=== PATIENT | male | born 1970 | race Caucasian/White ===

== ENCOUNTER 2016-05-25 10:00 | Outpatient (CLI) | payer MEDICAID | END 2016-05-25 10:01 | disposition home or self-care (01) | DX: C73 Malignant neoplasm of thyroid gland (principal) ==

== ENCOUNTER 2016-08-03 08:49 | Outpatient (CLI) | payer MEDICAID | END 2016-08-03 08:50 | disposition home or self-care (01) | DX: M50.31 Other cervical disc degeneration, high cervical region (principal); M47.892 Other spondylosis, cervical region; M47.893 Other spondylosis, cervicothoracic region ==

== ENCOUNTER 2016-12-10 09:25 | Outpatient (CLI) | payer MEDICAID | END 2016-12-10 09:26 | disposition home or self-care (01) | LOC: LAB.N 09:25 | PROVIDERS: ATTEND Nurse Practitioner Gerontology | DX: R31.0 Gross hematuria (principal) | CPT/HCPCS: 36415; 84153 ==

== ENCOUNTER 2017-01-17 10:50 | Outpatient (CLI) | payer MEDICAID ==
[2017-01-17 19:29] LABS: CREATININE 1.1 mg/dL (0.6-1.2)
[2017-01-17 19:39] LABS: PSA TOTAL 7.99 ng/mL (0.000-2.000)
[2017-01-18 11:54] LABS: PSA FREE 1.3 ng/mL (0.16-2.81)
== END 2017-01-17 10:51 | disposition home or self-care (01) ==
LOC: LAB.N 10:50
PROVIDERS: ATTEND Urology
DX: R31.0 Gross hematuria (principal); R97.20 Elevated prostate specific antigen [PSA]; R39.15 Urgency of urination; R35.0 Frequency of micturition
CPT/HCPCS: 36415; 82565; 84153; 84154; 84520

== ENCOUNTER 2017-01-24 05:19 | Emergency (ER) | payer MEDICAID ==
[2017-01-24] MEDS ORDERED: SODIUM CHLORIDE 0.9% 1,000 ML IV ONE (05:38)
[2017-01-24] MEDS ORDERED: MORPHINE 10 MG/ML VIAL IVP STA (05:38)
[2017-01-24 05:47] LABS: BASOPHILS # (AUTO) 0.1 10^3/uL (0.0-0.1); BASOPHILS % (AUTO) 0.7 %; EOSINOPHILS # (AUTO) 0.3 10^3/uL (0.0-0.7); EOSINOPHILS % (AUTO) 2.5 %; HCT - HEMATOCRIT 45.3 % (42.0-52.0); HGB - HEMOGLOBIN 15.9 g/dL (14.0-18.0); LYMPHOCYTES # (AUTO) 2.2 10^3/uL (1.5-3.5); LYMPHOCYTES % (AUTO) 19.9 %; MEAN CORPUSCULAR HEMOGLOBIN 31.5 pg (27.0-31.0); MEAN CORPUSCULAR VOLUME 89.8 fL (80.0-94.0); MEAN PLATELET VOLUME 8.2 fL (7.4-11.4); MONOCYTES # (AUTO) 0.6 10^3/uL (0.0-1.0); MONOCYTES % (AUTO) 5.8 %; NEUTROPHILS # (AUTO) 7.8 10^3/uL (1.5-6.6); NEUTROPHILS % (AUTO) 71.1 %; RED BLOOD COUNT 5.04 10^6/uL (4.70-6.10); RED CELL DISTRIBUTION WIDTH 13.8 % (12.0-15.0); UNCORRECTED WHITE BLOOD COUNT 10.9 x10^3/uL; WHITE BLOOD COUNT 10.9 x10^3/uL (4.8-10.8)
[2017-01-24] MEDS ORDERED: MORPHINE 2 MG/ML SYRINGE ONE (05:53)
[2017-01-24 06:02] LABS: ALBUMIN/GLOBULIN RATIO 1.1 (1.0-2.2); BILIRUBIN,DIRECT 0.1 mg/dL (0.1-0.5); BILIRUBIN,TOTAL 0.4 mg/dL (0.2-1.0); CALCIUM 8.4 mg/dL (8.5-10.3); TOTAL PROTEIN 7.9 g/dL (6.7-8.2)
--- NOTE | 2017-01-24 06:02 | ED Physician Documentation ---
PD HPI ABD PAIN - Stated complaint Stated Complaint: ABDOMINAL PAIN - Chief complaint Chief Complaint: Abd Pain - History obtained from History obtained from: Patient, Family - History of Present Illness Timing - onset: Today Timing - details: Gradual onset, Still present Quality: Aching, Sharp Location: RUQ Worsened by: Position, Palpation Associated symptoms: Nausea. No: Fever, Vomiting, Hematemesis, Diarrhea Similar symptoms before: Has not had sx before Recently seen: Not recently seen - Additional information Additional information: Patient is a 46 year old male with no significant past medical history who is presenting to the emergency department for abdominal pain. patient states that it started this morning and is severe in nature. Patient states that it his in his right upper quadrant. patient reports eating a hamburger and ice cream yesterday. Review of Systems Constitutional: reports: Chills. denies: Fever Eyes: denies: Loss of vision Ears: denies: Ear pain, Drainage/discharge Nose: denies: Rhinorrhea / runny nose, Congestion Throat: denies: Dental pain / toothache, Sore throat Cardiac: denies: Chest pain / pressure Respiratory: denies: Dyspnea, Cough GI: reports: Abdominal Pain. denies: Nausea, Vomiting : denies: Dysuria, Frequency Musculoskeletal: denies: Neck pain, Back pain Neurologic: denies: Generalized weakness, Focal weakness Immunocompromised: denies: Immunocompromised PD PAST MEDICAL HISTORY - Past Medical History Cardiovascular: Hypertension Respiratory: None Neuro: None Endocrine/Autoimmune: None HEENT: Other Psych: None Musculoskeletal: None Derm: Psoriasis - Past Surgical History Past Surgical History: No - Present Medications Home Medications: Ambulatory Orders Medication Instructions Recorded Confirmed Atenolol/Chlorthalidone 1 tab PO DAILY 01/24/17 01/24/17 [Atenolol-Chlorthalidone 100-25] Calcitriol [Rocaltrol] 1 tab PO DAILY 01/24/17 01/24/17 Clobetasol Propionate 1 applic .ROUTE DAILY 01/24/17 01/24/17 Indomethacin 1 tab PO PRN PRN 01/24/17 01/24/17 Levothyroxine [Synthroid] 175 mg PO DAILY 01/24/17 01/24/17 Ondansetron Odt [Zofran] 4 mg TL Q6H PRN #14 tablet 01/24/17 Oxycodone HCl/Acetaminophen 1 - 2 each PO Q6H PRN #14 tablet 01/24/17 [Percocet 5-325 mg Tablet] Tamsulosin [Flomax] 1 tab PO DAILY 01/24/17 01/24/17 - Allergies Allergies/Adverse Reactions: Allergies Allergy/AdvReac Type Severity Reaction Status Date / Time No Known Drug Allergies Allergy Verified 01/24/17 05:28 - Social History Does the pt smoke?: No Smoking Status: Never smoker Does the pt drink ETOH?: No Does the pt have substance abuse?: No - Immunizations Immunizations are current?: Yes PD ED PE NORMAL - Vitals Vital signs reviewed: Yes - General General: Alert and oriented X 3, No acute distress - HEENT HEENT: Atraumatic, PERRL - Neck Neck: Supple, no meningeal sign - Cardiac Cardiac: RRR, No murmur - Respiratory Respiratory: No respiratory distress - Abdomen Abdomen: Soft - Derm Derm: Normal color, Warm and dry, No rash - Extremities Extremities: No deformity - Neuro Neuro: Alert and oriented X 3, cane weigher helper 2-12 intact, No motor deficit, No sensory deficit - Psych Psych: Normal mood, Normal affect PD ED PE EXPANDED - Abdomen Abdomen: Tender to palpation, RUQ. No: Rebound, Guarding Results - Vitals Vitals: Vital Signs - 24 hr 01/24/17 01/24/17 05:27 06:47 Temperature 36.8 C 36.3 C L Heart Rate 77 60 Respiratory 18 16 Rate Blood Pressure 137/95 H 111/67 O2 Saturation 100 97 Oxygen O2 Source Room air - Labs Labs: Laboratory Tests 01/24/17 01/24/17 05:36 05:36 WBC 10.9 H RBC 5.04 Hgb 15.9 Hct 45.3 MCV 89.8 MCH 31.5 H MCHC 35.0 RDW 13.8 Plt Count 215 MPV 8.2 Neut # 7.8 H Lymph # 2.2 Swain # 0.6 Eos # 0.3 Baso # 0.1 Absolute Nucleated RBC 0.00 Nucleated RBC % 0.0 Sodium 136 Potassium 3.0 L Chloride 97 L Carbon Dioxide 30 Anion Gap 9.0 BUN 20 Creatinine 1.0 Estimated GFR (MDRD) 80 L Glucose 124 H Calcium 8.4 L Total Bilirubin 0.4 Direct Bilirubin 0.1 AST 22 ALT 20 Alkaline Phosphatase 62 Total Protein 7.9 Albumin 4.1 Globulin 3.8 Albumin/Globulin Ratio 1.1 Lipase 181 H PD MEDICAL DECISION MAKING - ED course Complexity details: reviewed old records, reviewed results, re-evaluated patient , considered differential, d/w patient ED course: Patient was seen and examined at bedside. iv access was gained and labs were drawn. Patient was treated with iv fluids and morphine. when patient's labs came back he was found to have a slight bump in his lipase. Imaging was ordered. when patient returned the results were reviewed. there were gallstones but no sign of acute infection. patient was made aware of the findings and stable for discharge with outpatient follow up. Departure - Departure Disposition: Home, Self Care Clinical Impression: Cholelithiasis Condition: Good Instructions: Gallstones Dc Follow-Up: Jaylan Elmore MD [Provider Admit Priv/Credential] - Prescriptions: Ondansetron Odt [Zofran] 4 mg TL Q6H PRN #14 tablet PRN Reason: Nausea / Vomiting Oxycodone HCl/Acetaminophen [Percocet 5-325 mg Tablet] 1 - 2 each PO Q6H PRN # 14 tablet PRN Reason: pain Comments: Your symptoms today are being caused by gallstones. there is no other sign of infection. The first thing to do is to change your diet. You will need to decrease the amounts of fatty/fried foods. You should stick to fruits, vegetables and lean proteins. You can take motrin or tylenol as needed for pain and percocet for breakthrough pain. You should contact Dr. quinn office to schedule a follow up appointment. You should return for fevers, chills, new worsening or uncontrollable symptoms.
[2017-01-24] MEDS ORDERED: IOPAMIDOL-300 100 ML VIAL ONE (06:13)
[2017-01-24] MEDS ORDERED: IOPAMIDOL-300 100 ML VIAL IVP ONE (06:31)
--- NOTE | 2017-01-24 06:55 | CT Preliminary Report ---
Exam: CT Abdomen/Pelvis W/ IMPRESSION: 1. No acute inflammatory or obstructive process seen in the abdomen or pelvis. 2. Cholelithiasis. 3. No CT evidence of pancreatitis. This does not exclude the clinical diagnosis. 4. Mildly enlarged prostate. [facility] SITE ID: [id number]
--- NOTE | 2017-01-24 06:57 | CT Report ---
EXAM: CT ABDOMEN AND PELVIS EXAM DATE: 01/24/2017 06:41 AM. CLINICAL HISTORY: Abdomen pain, leukocytosis, elevated lipase. COMPARISONS: 05/02/2012. TECHNIQUE: Routine helical CT imaging was performed through the abdomen and pelvis. IV contrast: Yes . Enteric contrast: No . Reconstructions: Coronal and sagittal. In accordance with CT protocol optimization, one or more of the following dose reduction techniques w ere utilized for this exam: automated exposure control, adjustment of mA and/or KV based on patient s ize, or use of iterative reconstructive technique. FINDINGS: Lung Bases: Unremarkable. Liver: Unremarkable. No suspicious masses. Gallbladder/Bile Ducts: Cholelithiasis, otherwise unremarkable. Spleen: Unremarkable. Pancreas: Unremarkable. Adrenal Glands: Unremarkable. Kidneys: Unremarkable. No suspicious masses or hydronephrosis. Peritoneal Cavity/Bowel: No bowel obstruction or inflammatory process seen. No free air or significan t free fluid. No masses or adenopathy. The appendix is normal. No excessive stool burden. Pelvic Organs: Mildly enlarged prostate. The bladder appears within normal limits. Vasculature: No aneurysms or other significant abnormality. Bones: No significant abnormality. Other: None. IMPRESSION: 1. No acute inflammatory or obstructive process seen in the abdomen or pelvis. 2. Cholelithiasis. 3. No CT evidence of pancreatitis. This does not exclude the clinical diagnosis. 4. Mildly enlarged prostate. [facility] Referring Provider Line: [phone] SITE ID: [id number]
[2017-01-24 07:29] VITALS: BP 105/66
== END 2017-01-24 07:29 | disposition home or self-care (01) ==
LOC: ED 05:19
DX: K80.20 Calculus of gallbladder without cholecystitis without obstruction (principal); I10 Essential (primary) hypertension
CPT/HCPCS: 36415; 74177; 80053; 82248; 83690; 85025; 96361; 96374; 99283; 99284; J2270; Q9967